=== PATIENT | male | born 1990 | race Caucasian/White ===

== ENCOUNTER 2017-08-05 15:35 | Emergency (ER) | payer OTHER ==
[~2017-08-05] VITALS: Ht 185.4 cm; Wt 84.9 kg
[2017-08-05 15:38] VITALS: TEMP 36.6; Ht 185.4 cm; Wt 84.9 kg
[2017-08-05] MEDS ORDERED: RABIES IMMUNE GLOBULIN (HUMAN) 150 INTER.UNIT/ML 2 ML VIAL IM. ONE (16:00)
[2017-08-05] MEDS ORDERED: RABIES VACCINE (IMOVAX) HUMAN DIPL CELL 2.5 INTER.UNIT/ML SYR IM. ONE (16:00)
[2017-08-05] MEDS ORDERED: OMEG10007 PO (16:15)
[2017-08-05] MEDS ORDERED: CLR10 PO (16:15)
[2017-08-05] MEDS ORDERED: MULT-106 PO (16:15)
[2017-08-05 17:00] VITALS: BP 126/90; PULSE 87; O2SAT 96
--- NOTE | 2017-08-06 07:00 | EMERGENCY ROOM VISIT NOTE ---
ED Visit Note First contact with patient: 15:41 Chief Complaint: Bat exposure. History of Present Illness: Mr. Garcia is a 27-year-old white male who ambulates into the ED complaining of a bat exposure. Patient reports he awoke this morning and found a bat flying around in his house. He was unsure the amount of time the bat was in residents. He reports he did do a body search and did not find any wounds. He did have family cat seen by a local vet who encouraged him to come the emergency department for rabies immunizations. Currently he has no complaints. Review of Systems: As noted above in history of present illness. Past Medical History: Unspecified skin disorder, status post tonsillectomy, adenoidectomy and wisdom teeth extraction. Current Medications: Medications Dose Route/Sig Max Daily Dose Days Date Category Claritin (Loratadine) 10 Mg Tab 10 Mg PO DAILY 08/05/17 Reported One Daily Mens (Multiple Vitamins W/ Minerals) 1 Tab Tab 1 Tab PO DAILY 08/05/17 Reported [place]-3 (Fish Oil) 1 Ea Cap 1 Cap PO DAILY 08/05/17 Reported Allergies to Medications: Penicillin. Social History: Patient is currently employed; he lives with his and feels safe in his home environment; he denies tobacco use and admits to alcohol use. Tetanus Immunization Status: 2008. Physical Examination: Vital Signs: Date Time Temp Pulse Resp B/P (MAP) Pulse Ox O2 Delivery O2 Flow Rate FiO2 08/05/17 17:00 87 18 126/90 96 08/05/17 15:38 36.6 87 16 129/79 98 Room Air GENERAL: 27-year-old male in no acute distress, nontoxic-appearing, afebrile and hemodynamically stable. NEUROLOGICAL: Awake, alert and oriented to person, place and time. Answering questions appropriately and following commands. Normal gait. Good hand eye coordination. SKIN: Warm, dry and pink. No soft tissue trauma noted. ED Course: Patient is assessed as noted above. Patient's medication list was reviewed. Patient received 1700 units of rabies immune globulin IM and 2.5 units of rabies immunization virus IM. Patient was educated about today's findings and instructed on his treatment plan ; he verbalized understanding and agreement with this plan. Clinical Impression: Rabies immunization. Disposition: Patient discharged home in stable condition accompanied by female friends; prior to departure he was reassessed and subjectively reported that he was pain and symptom-free. Plan: Patient was educated on potential side effects of medications and rabies infections. Patient was given the remainder of his rabies immunization schedule. Patient was encouraged to return to the emergency department for any moderate or concerning symptoms related to his injections and to return for additional rabies immunizations.
== END 2017-08-05 17:00 | disposition home or self-care (01) ==
LOC: C.EDB 15:38 → C.EDD 17:00
DX: Z20.3 Contact with and (suspected) exposure to rabies (principal); Z23 Encounter for immunization; Z98.818 Other dental procedure status; Z90.89 Acquired absence of other organs